=== PATIENT | male | born 1990 | race African-American/Black ===

== ENCOUNTER 2017-11-02 19:59 | Emergency (ER) | payer BC ==
[~2017-11-02] VITALS: Ht 190.5 cm; Wt 129.0 kg
[2017-11-02 22:52] VITALS: BP 191/138
== END 2017-11-02 23:29 | disposition home or self-care (01) ==
LOC: ER 22:27
DX: L03.113 Cellulitis of right upper limb (principal); I10 Essential (primary) hypertension; F17.200 Nicotine dependence, unspecified, uncomplicated
CPT/HCPCS: 73130; 99284